=== PATIENT | female | born 1955 | race Caucasian/White ===

== ENCOUNTER 2022-02-09 16:49 | Observation (INO) | payer MEDICARE ==
[~2022-02-09] VITALS: Ht 165.1 cm; Wt 112.0 kg
[2022-02-09] VITALS (10 sets, daily range): BP systolic 123–153; BP diastolic 56–79
--- NOTE | 2022-02-09 17:55 | NUR ---
PT BROUGHT TO ROOM FOR TRIAGE AT THIS TIME
[2022-02-09 18:47] LABS: HEMATOCRIT 44.1 % (37.0-47.0); HEMOGLOBIN 13.8 g/dl (12.0-16.0); MEAN CELL VOLUME 96.7 fL CALC (80.0-100.0); MEAN CORPUSCULAR HGB 30.3 pG CALC (26.0-32.0); MEAN CORPUSCULAR HGB CONC 31.3 g/dL CAL (32.0-36.0); NEUT# 3.19 thou/uL (2.00-7.15); RED BLOOD COUNT 4.56 mill/uL (4.20-5.60); RED CELL DISTRI WIDTH 13.9 % (11.5-15.5)
[2022-02-09 19:19] LABS: ALBUMIN 4.2 g/dL (3.2-5.0); ALKALINE PHOSPHATASE 55 u/l (38-126); ANION GAP 12 (6-22 (CALC)); BILIRUBIN, TOTAL 0.5 mg/dL (0.0-1.4); BUN 13 mg/dL (8-23); BUN/CREATININE RATIO 13 (12-20 (CALC)); CARBON DIOXIDE 28 mmol/l (22-30); CHLORIDE 104 mmol/l (95-108); GFR 55 ML/MIN (>=60 (CALC)); GFR FOR AFR.AMER. > 60 ML/MIN (>=60 (CALC)); POTASSIUM 3.8 mmol/l (3.5-5.1); SGOT/AST 61 u/l (9-36); SODIUM 140 mmol/l (137-146); TOTAL PROTEIN 7.1 g/dL (6.3-8.2)
[2022-02-09 19:27] LABS: MYOGLOBIN 28 ng/mL (0 - 62)
--- NOTE | 2022-02-09 20:25 | NUR ---
MRI SCREEN COMPLETED AND SENT TO RADIOLOGY
[2022-02-09] MEDS ORDERED: JARDIANCE25 MG PO (20:43)
[2022-02-09] MEDS ORDERED: GABAPENTIN300 M2 PO ×2 (20:44→20:45)
[2022-02-09] MEDS ORDERED: PROTONIX40 M2 PO (20:46)
[2022-02-09] MEDS ORDERED: ZESTRIL5 M1 PO (20:46)
[2022-02-09] MEDS ORDERED: LEVOTHROID125 MCG PO (20:46)
[2022-02-09] MEDS ORDERED: METFORMIN HCL1000 MG PO (20:47)
[2022-02-09] MEDS ORDERED: CITALOPRAM10 M1 PO (20:48)
[2022-02-09] MEDS ORDERED: LIPITOR80 M1 PO (20:48)
[2022-02-09] MEDS ORDERED: QUETIAPINE FUMA50 MG PO (20:49)
--- NOTE | 2022-02-09 21:25 | NUR ---
REPORT GIVEN TO ORLY BARONE
--- NOTE | 2022-02-09 21:50 | NUR ---
PT ARRIVED TO ICU 6 VIA WHEELCHAIR AMBULATED WELL TO BED, ORIENTED PT TO ROOM AND CALL LIGHT, DISCUSSED POC VERBALIZED UNDERSTANDING. PT DENIES ANY NEEDS OR COMPLAINTS AT THIS TIME. IV FLUSHED, BLOOD GLUCOSE METER CHECKED 149. PT STATES SHE NORMALLY USES CPAP AT NIGHT, 02 2L NC PLACED. ADMISSION ASSESSMENT COMPLETED, CALL LIGHT IN REACH,CONTINUE TO MONITOR.
--- NOTE | 2022-02-09 23:44 | NUR ---
ASSISTED PT TO BATHROOM, PT STATES SHE WAS A LITTLE DIZZY GETTING UP BUT AMBULATED WITH STEADY GAIT WITH CANE, CONSOLE OPERATOR ALONG SIDE FOR ASSIST. PT TOLERATED WELL. ASSISTED BACK TO BED, CALL LIGHT IN REACH,CONTINUE TO MONITOR.
[2022-02-10] VITALS (10 sets, daily range): BP systolic 110–134; BP diastolic 57–71
--- NOTE | 2022-02-10 01:45 | NUR ---
PT C/O PAIN TO BLE MEDICATED WITH TYLENOL, PT STATES THAT IT DID NOT HELP. MD NOTIFIED AND ORDERS OBTAINED FOR TRAMADOL, PT MEDICATED PER DEC, CALL LIGHT IN REACH,CONTINUE TO MONITOR.
--- NOTE | 2022-02-10 04:22 | NUR ---
AM LABS OBTAINED, PT VOICES NO NEEDS OR COMPLAINTS, CALL LIGHT IN REACH,CONTINUE TO MONITOR.
[2022-02-10 04:47] LABS: HEMATOCRIT 42.1 % (37.0-47.0); HEMOGLOBIN 13.4 g/dl (12.0-16.0); MEAN CELL VOLUME 95.7 fL CALC (80.0-100.0); MEAN CORPUSCULAR HGB 30.5 pG CALC (26.0-32.0); MEAN CORPUSCULAR HGB CONC 31.8 g/dL CAL (32.0-36.0); RED BLOOD COUNT 4.4 mill/uL (4.20-5.60); RED CELL DISTRI WIDTH 13.8 % (11.5-15.5)
[2022-02-10 05:13] LABS: ANION GAP 8 (6-22 (CALC)); BUN 12 mg/dL (8-23); BUN/CREATININE RATIO 13 (12-20 (CALC)); CARBON DIOXIDE 27 mmol/l (22-30); CHLORIDE 106 mmol/l (95-108); GFR 55 ML/MIN (>=60 (CALC)); GFR FOR AFR.AMER. > 60 ML/MIN (>=60 (CALC)); MAGNESIUM 1.5 mg/dL (1.6-2.3); POTASSIUM 3.4 mmol/l (3.5-5.1); SODIUM 138 mmol/l (137-146)
--- NOTE | 2022-02-10 06:40 | NUR ---
RECIEVED REPORT FROM ORLY JUSTICE
--- NOTE | 2022-02-10 06:50 | NUR ---
RECIEVED REPORT FROM ORLY JUSTICE.
--- NOTE | 2022-02-10 07:00 | NUR ---
PT RESTING IN HIGH FOWLERS POSITION . PT A/OX3 ASSESMENT AND VITAL SIGNS COMPLETED. HEART SOUNDS NORMAL WITH TELE IN PLACE. RESPIRATIONS EVEN AND UNLABORED. BOWEL SOUNDS ACTIVE. IV PATENT/FLUSHED. PT C/O SOME DIZZINESS.ASSISTED PT TO BATHROOM . PT DENIES ANY ADDITIONAL NEEDS AT THE MOMENT. INSTRUCTED PT TO USE CALL LIGHT NEEDED. PT VERBALIZED UNDERSTANDING. ALL SAFETY PRECAUTIONS IN PLACE WITH CALL LIGHT IN REACH.
[2022-02-10 08:45] LABS: URINE BILIRUBIN - DIPSTICK NEGATIVE (NEGATIVE); URINE BLOOD DIPSTICK NEGATIVE (NEGATIVE); URINE COLOR YELLOW; URINE GLUCOSE - DIPSTICK >=1000 mg/dL (NEGATIVE); URINE KETONE NEGATIVE (NEGATIVE); URINE LEUK ESTERASE TRACE (NEGATIVE); URINE PROTEIN - DIPSTICK NEGATIVE (NEG-TRACE); URINE UROBILINOGEN - DIPSTICK 0.2 E.U./dL (0.2)
[2022-02-10 09:04] LABS: URINE NITRITE - DIPSTICK NEGATIVE (Negative)
--- NOTE | 2022-02-10 09:58 | NUR ---
ABISAI GIL AT BEDSIDE TO COMPLETE AMANDA, RESULTING IN 0
[2022-02-10] MEDS ORDERED: FLONASE AL50 MCG/AC1 NS (11:42)
[2022-02-10] MEDS ORDERED: MECLIZINE 2525 MG PO (11:43)
--- NOTE | 2022-02-10 12:06 | NUR ---
PT RESTING IN LOW FOWLERS POSITION. PT EDUCATED ON DC ORDERS.PT VERBALLY STATED UNDERSTANDING. PT REQUESTED MEDICATION FOR DIZZINES. MEDICATION PROVIDED PER EMAR. IV REMOVED WITH CATH INTACT. PT TO BE TRANSFERED TO MRI . ALL SAFETY PRECAUTIONS IN PLACE WITH CALL LIGHT IN REACH.
--- NOTE | 2022-02-10 13:09 | NUR ---
Discharge instructions given. Patient verbalizes understanding of same. Discharged in stable condition via Wheelchair to Home with staff. All belongings sent with pt.
== END 2022-02-10 13:09 | disposition home or self-care (01) ==
LOC: ED 16:49 → ICU 19:53
PROVIDERS: Nurse Practitioner; ADMIT Hospitalist; ATTEND Hospitalist
DX: R42 Dizziness and giddiness (principal); I10 Essential (primary) hypertension; E11.40 Type 2 diabetes mellitus with diabetic neuropathy, unspecified; E03.9 Hypothyroidism, unspecified; E66.9 Obesity, unspecified; T78.40XA Allergy, unspecified, initial encounter; Z79.84 Long term (current) use of oral hypoglycemic drugs; Z86.718 Personal history of other venous thrombosis and embolism; Z20.822 Contact with and (suspected) exposure to COVID-19

== ENCOUNTER 2023-06-12 12:20 | Emergency (ER) | payer MEDICARE ==
[~2023-06-12] VITALS: Ht 165.1 cm; Wt 118.0 kg
[~2023-06-12 12:20] MED LIST: CITALOPRAM10 M1 PO; FLONASE AL50 MCG/AC1 NS; GABAPENTIN300 M2 PO; JARDIANCE25 MG PO; LEVOTHROID125 MCG PO; LIPITOR80 M1 PO; MECLIZINE 2525 MG PO; METFORMIN HCL1000 MG PO; PROTONIX40 M2 PO; QUETIAPINE FUMA50 MG PO; ZESTRIL5 M1 PO
[2023-06-12 12:22] VITALS: BP 134/76
[2023-06-12 12:30] VITALS: BP 141/78
[2023-06-12 13:18] VITALS: BP 120/53
[2023-06-12 13:31] VITALS: BP 119/50
[2023-06-12 13:46] VITALS: BP 115/50
== END 2023-06-12 14:00 | disposition home or self-care (01) ==
LOC: ED 12:20
DX: S81.011A Laceration without foreign body, right knee, initial encounter (principal); S50.01XA Contusion of right elbow, initial encounter; I10 Essential (primary) hypertension; E11.40 Type 2 diabetes mellitus with diabetic neuropathy, unspecified; E66.01 Morbid (severe) obesity due to excess calories; W01.0XXA Fall on same level from slipping, tripping and stumbling without subsequent striking against object, initial encounter; Y92.239 Unspecified place in hospital as the place of occurrence of the external cause; Z79.84 Long term (current) use of oral hypoglycemic drugs